=== PATIENT | male | born 1950 | race Caucasian/White ===

== ENCOUNTER → 2021-11-13 10:37 | Outpatient (CLI) | payer MEDICARE, SELFPAY ==
--- NOTE | 2021-11-13 10:53 | XR_ITS ---
FINAL REPORT CLINICAL HISTORY: KIDNEY STONE FINDINGS: A single view of the abdomen was obtained. There is a nonobstructive bowel gas pattern. There are no abnormally dilated loops of small bowel. Mild gas and stool obscures the renal outlines. There are no definite renal stones. There is a moderate amount of retained stool. IMPRESSION: No definite renal stones. Reviewed, Interpreted and Dictated by Jose Nava III, MD Transcribed by Latisha Bishop Authenticated by Jose Nava III, MD on 11/13/2021 11:35:17 AM [facility]
== END ==
PROVIDERS: PCP Family Medicine; Visit Provider Urology
DX: N20.0 Calculus of kidney (principal)
CPT/HCPCS: 74018

== ENCOUNTER → 2021-11-15 11:11 | Outpatient (CLI) | payer MEDICARE, SELFPAY ==
[2021-11-16 09:14] LABS: PSA, Free 1.23 ng/mL; Prostate Specific Ag 6.4 ng/mL (0.0-4.0)
== END ==
PROVIDERS: Visit Provider Urology
DX: R97.20 Elevated prostate specific antigen [PSA] (principal)
CPT/HCPCS: 36415; 84153; 84154